=== PATIENT | female | born 1980 | race Caucasian/White ===

== ENCOUNTER 2018-05-11 15:11 | Emergency (ER) | END 2018-05-11 18:21 | disposition home or self-care (01) ==

== ENCOUNTER 2018-08-20 10:31 | Emergency (ER) | payer MEDICAID ==
[~2018-08-20] VITALS: Wt 83.2 kg
[~2018-08-20 10:31] MED LIST: ACET500C5 PO; GUAI-637 PO
--- NOTE | 2018-08-20 12:49 | ERD ---
ER Documentation Chief Complaint Chief Complaint r. earache, sore throat, 24 wks preg, denies abd pain/back pain HPI 37-year-old female, who is currently 24 weeks presents for right earache and sore throat, which is ongoing for the last 4 days. Symptoms are constant, are associated with a cough, relieving symptoms include taking Tylenol. She has not had any shortness of breath, she has had no recent hospitalizations, she has a history of diabetes, and states that her blood sugars have been well controlled. ROS All systems reviewed and are negative except as per history of present illness. Medications Home Meds Active Scripts Amoxicillin* (Amoxicillin*) 500 Mg Cap, 500 MG PO TID for 7 Days, CAP Prov:KARL SLAETR MD 08/20/18 Amoxicillin* (Amoxicillin*) 500 Mg Cap, 500 MG PO TID for 7 Days, CAP Prov:KARL SLATER MD 08/20/18 Guaifenesin* (Robitussin*) 100 Mg/5 Ml Syrup, 200 MG PO Q4H PRN for COUGH, #120 ML Prov:PRADIP MULTANI NP 05/11/18 Acetaminophen* (Tylophen*) 500 Mg Capsule, 1 CAP PO Q6H PRN for PAIN AND OR ELEVATED TEMP, #20 CAP Prov:PRADIP MULTANI NP 05/11/18 Reported Medications [None] No Conflict Check 05/14/11 Allergies Allergies: Coded Allergies: No Known Allergy (Unverified , 05/14/11) PMhx/Soc Medical and Surgical Hx: pt denies Surgical Hx History of Surgery: No Anesthesia Reaction: No Hx Neurological Disorder: No Hx Respiratory Disorders: No Hx Cardiac Disorders: No Hx Psychiatric Problems: No Hx Miscellaneous Medical Probl: Yes (DM, 24WKS ) Hx Alcohol Use: No Hx Substance Use: No Hx Tobacco Use: No Smoking Status: Never smoker Physical Exam Vitals Vital Signs Date Temp Pulse Resp B/P (MAP) Pulse Ox O2 O2 Flow FiO2 Time Delivery Rate 08/20/18 97.7 92 20 127/65 97 10:32 (85) Physical Exam Const: No acute distress Head: Atraumatic Eyes: Normal Conjunctiva ENT: Normal External Ears, Nose and Mouth. Right ear, is erythematous, there is no bulging or drainage Neck: Full range of motion. No meningismus. No trismus, no tonsillar exudates, no tender adenopathy. Resp: Clear to auscultation bilaterally Cardio: Regular rate and rhythm, no murmurs Abd: Soft, non tender, non distended. Normal bowel sounds Skin: No petechiae or rashes Back: No midline or flank tenderness Ext: No cyanosis, or edema Neur: Awake and alert Psych: Normal Mood and Affect Procedures/MDM 37-year-old female presents for evaluation of right ear pain and sore throat. Symptoms are consistent with likely upper respiratory infection, given and comorbidities, will treat for otitis media with amoxicillin. Patient otherwise stable for discharge home, at discharge she was in no acute distress. Departure Diagnosis: Primary Impression: Otitis media Otitis media type: unspecified Laterality: right Qualified Codes: H66.91 - Otitis media, unspecified, right ear Condition: Stable KARL SLATER MD Aug 20, 2018 12:49
[2018-08-20] MEDS ORDERED: AMOX500C2 PO ×2 (12:50→12:53)
[2018-08-20 13:54] VITALS: BP 132/68; PULSE 66; RESP 18
== END 2018-08-20 13:57 | disposition home or self-care (01) ==
LOC: FTE 10:31
DX: O99.89 Other specified diseases and conditions complicating pregnancy, childbirth and the puerperium (principal); H66.91 Otitis media, unspecified, right ear; O24.112 Pre-existing type 2 diabetes mellitus, in pregnancy, second trimester; E11.9 Type 2 diabetes mellitus without complications; Z3A.24 24 weeks gestation of pregnancy
CPT/HCPCS: 99283

== ENCOUNTER 2018-09-11 21:08 | Outpatient (CLI) | payer MEDICAID ==
[~2018-09-11 21:08] MED LIST changes: +AMOX500C2 PO
[2018-09-11] MEDS ORDERED: METF-849 PO ×2 (22:56)
[2018-09-11] MEDS ORDERED: ASPI-831 PO (22:56)
--- NOTE | 2018-09-12 06:36 | PN ---
Triage Information Date/Time September 11, 2018 Weeks of Gestation 27 weeks and 5 days /Para 4 para 2 Diabetes: none Hypertention: none Additional information 37-year-old with IUP at 27 weeks and 5 days presented with complaint of pelvic pressure and leaking of ascitic fluid for 1 week. She denies any vaginal bleeding or decreased movement. Denies any comp occasions during her course. Reports pelvic pressure down to her vagina. Denies any urinary symptoms. Objective Heart Rate: 120's Heart Rate Comments Reassuring and appropriate for gestational age Contractions: None Exam General appearance: Alert and oriented x4 does not appear to be in any acute distress Abdomen: Soft, gravid, fundal height consider gestational age No tenderness, no rebound tenderness, no rigidity no guarding NST: Category 1 and appropriate for gestational age Occasional rare irritability noted SSE:: Examination: Negative pooling, negative nitrazine, R OM test negative Results/Medications Results 24 hrs Laboratory Tests Test 09/11/18 22:45 09/11/18 23:03 Urine Color YELLOW Urine Clarity CLEAR Urine pH 7.0 Urine Specific [place] 1.010 Urine Ketones NEGATIVE Urine Nitrite NEGATIVE Urine Bilirubin NEGATIVE Urine Urobilinogen NEGATIVE Urine Leukocyte Esterase NEGATIVE Urine Hemoglobin NEGATIVE Urine Glucose NEGATIVE Urine Total Protein NEGATIVE Membranes Rupture NEGATIVE Bedside Glucose 106 PROCEDURE: US biophysical profile. CLINICAL INDICATION: Abdominal pressure. well-being. TECHNIQUE: Multiple sonographic images of the uterus were obtained. The images were reviewed on a PACS workstation. COMPARISON: US PELVIS 05/11/2018 FINDINGS: There is a single live intrauterine gestation. heart rate is 150 beats per minute. The position is transverse, head maternal right. The placenta is anterior, grade 1-2. The AWILDA is 13.4 cm. The cervical length measures 3.4 cm. Breathing Movement: 2 Gross Body Movement: 2 Tone: 2 Qualitative Amniotic Fluid Volume: 2 TOTAL: 8 IMPRESSION: 1. Single viable intrauterine gestation. 2. Biophysical profile = 12/30. 3. WAILDA = 13.4 cm. RPTAT: HFN Disposition: Discharge Assessment/Plan IUP at 27 weeks and 5 days Pelvic pressure. Resolved after hydration. No evidence of labor Cervical length: 3.4 cm Symptoms resolved after received hydration No evidence of UTI No evidence of PPROM testing reassuring Patient advised about adequate hydration Follow-up within 48 hours after discharge from the hospital with primary OB office or sooner as needed History of present labor precautions kick count and follow-up with OB office within 48 hours after discharge from the hospital discussed with the patient Patient verbalized understanding. All questions were answered to the patient with satisfaction. DENNISE CASTRO MD Sep 12, 2018 06:36
== END 2018-09-12 01:01 | disposition home or self-care (01) ==
LOC: L-D 21:08 → OBT 21:08
PROVIDERS: ATTEND Obstetrics & Gynecology Obstetrics
DX: O42.912 Preterm premature rupture of membranes, unspecified as to length of time between rupture and onset of labor, second trimester (principal); O26.892 Other specified pregnancy related conditions, second trimester; R10.2 Pelvic and perineal pain; O09.522 Supervision of elderly multigravida, second trimester; Z3A.27 27 weeks gestation of pregnancy
CPT/HCPCS: 76817; 76818; 81003; 82962; 84112; Z7500; G0463